=== PATIENT | female | born 1950 | race Caucasian/White ===

== ENCOUNTER 2019-04-26 15:54 | Emergency (ER) | payer OTHER | END 2019-04-26 21:04 | disposition home or self-care (01) | LOC: FTE 15:54 | DX: S92.322A Displaced fracture of second metatarsal bone, left foot, initial encounter for closed fracture (principal); R51 Headache; W10.8XXA Fall (on) (from) other stairs and steps, initial encounter; Y92.9 Unspecified place or not applicable | CPT/HCPCS: 70450; 73562; 73590; 73610; 73630-LT; 99284-25 ==